=== PATIENT | female | born 1955 | race Caucasian/White ===

== ENCOUNTER 2024-08-23 17:40 | Inpatient (IN) | payer MEDICARE, OTHER ==
[2024-08-23 19:31] VITALS: BMI 29.9
[2024-08-23] MEDS ORDERED: Acetaminophen 650 MG Suppository PR PRN (19:35)
[2024-08-23] MEDS ORDERED: Ondansetron ODT 4 MG TAB PO PRN (19:35)
[2024-08-23] MEDS: Famotidine 20 MG TAB PO SCH (20:20)
[2024-08-23] MEDS: Acetaminophen 325 MG TAB PO SCH (20:21)
[2024-08-23 20:57] LABS: #Basophils 0.06 10x3/uL (0.0-0.2); %Basophils 0.6 % (0.0-1.0); %Eosinophils 2.2 % (0.0-10.0); %Lymphocytes 20.4 % (21.0-51.0); %Monocytes 9.5 % (0.0-10.0); Hematocrit 36.6 % (36.0-47.0); Hemoglobin 12.2 g/dL (12.0-16.0); Mean Corpuscular HGB CONC 33.3 g/dL (32.0-36.0); Mean Corpuscular Hemoglobin 29.8 pg (27.0-31.0); Mean Corpuscular Volume 89.5 fL (78.0-98.0); Mean Platelet Volume 9.9 fL (7.4-10.4); Platelet Count 243 10x3/uL (130-400); RBC Distribution Width 13.6 % (11.5-14.5); Red Blood Cell (RBC) Count 4.09 mill/uL (4.20-5.40)
[2024-08-23 21:10] LABS: Anion Gap 11 mmol/L (10-20); BUN (Urea Nitrogen) 9 mg/dL (9.8-20.1); Calc. Creatinine Clearance 81 mL/min (70-130); Calcium 8.8 mg/dL (7.8-10.44); Carbon Dioxide 22 mmol/L (23-31); Chloride 102 mmol/L (98-107); Estimated GFR 76; Glucose 112 mg/dL (80-115); Potassium 4.1 mmol/L (3.5-5.1); Sodium 131 mmol/L (136-145)
[2024-08-24] MEDS: Morphine 2 MG/ML VIAL SLOW IVP PRN (00:37)
[2024-08-24] MEDS: Ondansetron PF 4 MG/2 ML Vial IVP PRN (00:37)
[2024-08-24] MEDS: Famotidine/PF 20 mg/2ml Vial SLOW IVP SCH (02:01)
[2024-08-24 05:59] LABS: ALT (SGPT) 10 U/L (8-55); AST (SGOT) 17 U/L (5-34); Albumin 3.1 g/dL (3.4-4.8); Alkaline Phosphatase 48 U/L (40-110); Anion Gap 8 mmol/L (10-20); BUN (Urea Nitrogen) 9 mg/dL (9.8-20.1); Bilirubin, Total 0.5 mg/dL (0.2-1.2); Calc. Creatinine Clearance 78 mL/min (70-130); Calcium 8.7 mg/dL (7.8-10.44); Carbon Dioxide 25 mmol/L (23-31); Chloride 106 mmol/L (98-107); Estimated GFR 73; Globulin 2.8 g/dL (2.4-3.5); Glucose 94 mg/dL (80-115); Protein, Total 5.9 g/dL (5.8-8.1); Sodium 135 mmol/L (136-145)
[2024-08-24] MEDS: Mometasone 200 MCG/Formoterol 5 MCG 120 PUFF INHALER INH SCH (08:50)
[2024-08-24] MEDS ORDERED: FLU (Fluad Triv) TS24-25 (65UP)/MF59C/PF 45 MCG/0.5 ML Syringe IM ONE (09:00)
[2024-08-24] MEDS: cefTRIAXone\\ROCEPHIN 1 GM in Sodium Chloride 0.9% 100 ML IVPB SCH (09:10)
[2024-08-24] MEDS: Sodium Chloride 0.9% 1,000 ML IV SCH (09:28)
[2024-08-24] MEDS: Ketorolac Tromethamine 30 MG (1 mL) VIAL IVP SCH (09:29)
[2024-08-24] MEDS: Aspirin/APAP/Caffeine Tab (Excedrin Migraine) PO PRN (09:35)
[2024-08-24] MEDS ORDERED: PROPOFOL 20 ML ONE (12:50)
[2024-08-24] MEDS ORDERED: fentaNYL PF 100 MCG/2 ML SYRINGE ONE ×2 (14:20→15:30)
[2024-08-24] MEDS ORDERED: Ondansetron PF 4 MG/2 ML Vial ONE (14:36)
[2024-08-24] MEDS ORDERED: Lidocaine 1% PF 5 ML VIAL ONE (14:36)
[2024-08-24] MEDS ORDERED: Dexamethasone 4 mg/ml Vial ONE (14:36)
[2024-08-24] MEDS ORDERED: Iopamidol 30 ML ONE (14:44)
[2024-08-24] MEDS ORDERED: ePHEDrine Sulfate 50 MG/10 ML VIAL ONE (15:01)
[2024-08-24] MEDS ORDERED: Oxybutynin 5 MG TAB PO PRN (15:12)
[2024-08-24] MEDS ORDERED: Phenazopyridine HCl 100 MG TAB PO PRN (15:12)
[2024-08-24] MEDS ORDERED: Oxybutynin 5 MG TAB ONE (15:30)
[2024-08-24] MEDS ORDERED: Phenazopyridine HCl 100 MG TAB ONE (15:30)
[2024-08-24 15:55] VITALS: BP 122/74; TEMP 97.8
[2024-08-24] MEDS ORDERED: Senokot S 8.6-50 MG TAB PO SCH (21:00)
== END 2024-08-24 19:21 | disposition home or self-care (01) | DRG 660 ==
LOC: SURG A 18:47 → OBSVTOIN 19:35
PROVIDERS: ADMIT Internal Medicine; ATTEND Internal Medicine
PROC: 0T778DZ Dilation of Left Ureter with Intraluminal Device, Via Natural or Artificial Opening Endoscopic (ICD-10-PCS; principal; 2024-08-24)
DX: N13.2 Hydronephrosis with renal and ureteral calculous obstruction (principal); E87.1 Hypo-osmolality and hyponatremia; E87.20 Acidosis, unspecified; J45.909 Unspecified asthma, uncomplicated; N28.1 Cyst of kidney, acquired; R31.9 Hematuria, unspecified; N18.2 Chronic kidney disease, stage 2 (mild); D72.829 Elevated white blood cell count, unspecified
CPT/HCPCS: 36415; 74420; 80053; 87086; C2617; J0696; J1100; J1885; J2272; J2405; J2704; J3490; J7030; Q9967

== ENCOUNTER 2024-08-31 10:08 | Day surgery (SDC) | payer MEDICARE, OTHER ==
[2024-08-30 14:06] VITALS: BMI 28.8
[2024-08-31] MEDS ORDERED: Dexamethasone 4 mg/ml Vial ONE (12:12)
[2024-08-31] MEDS ORDERED: Lidocaine 1% PF 5 ML VIAL ONE (12:12)
[2024-08-31] MEDS ORDERED: PROPOFOL 20 ML ONE (12:12)
[2024-08-31] MEDS ORDERED: Ondansetron PF 4 MG/2 ML Vial ONE (12:12)
[2024-08-31] MEDS ORDERED: fentaNYL PF 100 MCG/2 ML SYRINGE ONE (12:12)
[2024-08-31] MEDS ORDERED: cefTRIAXone (ROCEPHIN) 1 GM VIAL ONE (13:10)
[2024-08-31] MEDS ORDERED: ePHEDrine Sulfate 50 MG/10 ML VIAL ONE (13:38)
[2024-08-31] MEDS ORDERED: Phenazopyridine HCl 100 MG TAB ONE (14:22)
[2024-08-31] MEDS ORDERED: Oxybutynin 5 MG TAB ONE (14:22)
[2024-08-31] MEDS ORDERED: fentaNYL 50 mcg/mL 1 mL Vial ONE (14:38)
[2024-08-31] MEDS ORDERED: HYDROcodone/Acetaminophen 5/325 mg Tablet ONE (16:30)
== END 2024-08-31 16:40 | disposition home or self-care (01) ==
LOC: SDC 10:08
PROVIDERS: ATTEND Urology
PROC: 0TC78ZZ Extirpation of Matter from Left Ureter, Via Natural or Artificial Opening Endoscopic (ICD-10-PCS; principal; 2024-08-31)
PROC: 0T778DZ Dilation of Left Ureter with Intraluminal Device, Via Natural or Artificial Opening Endoscopic (ICD-10-PCS; 2024-08-31)
DX: N20.1 Calculus of ureter (principal); J45.909 Unspecified asthma, uncomplicated; F32.A Depression, unspecified; Z79.51 Long term (current) use of inhaled steroids; Z79.899 Other long term (current) drug therapy
CPT/HCPCS: 52356; 74420; C1769; C2617; J0696; J1100; J2405; J2704; J3010; 82365; 88300